=== PATIENT | female | born 2000 | race Caucasian/White ===

== ENCOUNTER 2021-08-10 15:41 | Emergency (ER) | payer BC ==
[~2021-08-10] VITALS: Wt 73.9 kg
[2021-08-10] MEDS ORDERED: XULANE1 TDM TD (15:50)
[2021-08-10 16:16] LABS: BASO # 0.05 K/mm3 (0.02-0.10); EOS # 0.42 K/mm3 (0.04-0.40); EOS % 3.6 % (1.0-5.0); HEMOGLOBIN 13.4 g/dL (12.5-16.0); LYMPH# 2.41 K/mm3 (1.50-4.00); MEAN CELL VOLUME 80 fl (78-100); MEAN CORPUSCULAR HEMOGLOBIN 25 pg (27-31); MEAN CORPUSCULAR HGB CONC 32 g/dL (33-37); MEAN PLATELET VOLUME 9.9 fl (7.4-10.4); MONO # 0.68 K/mm3 (0.20-0.80); NEU # 7.96 K/mm3 (1.40-6.50); PLATELET COUNT 317 K/mm3 (130-400); RED BLOOD COUNT 5.28 M/mm3 (4.10-5.30); RED CELL DISTRIBUTION WIDTH 13.6 % (11.5-14.5); WHITE BLOOD COUNT 11.5 K/mm3 (4.8-10.8)
[2021-08-10 16:23] LABS: POTASSIUM 4.2 mmol/L (3.5-5.1)
[2021-08-10 16:24] LABS: CALCIUM 9.2 mg/dL (8.3-10.5)
[2021-08-10 16:25] LABS: TOTAL PROTEIN 7.5 g/dL (6.4-8.3)
[2021-08-10 16:26] LABS: URINE APPEARANCE CLEAR; URINE BILIRUBIN NEGATIVE (NEGATIVE); URINE BLOOD TRACE (NEGATIVE); URINE COLOR YELLOW; URINE GLUCOSE NEGATIVE (NEGATIVE); URINE KETONE NEGATIVE (NEGATIVE); URINE LEUKOCYTE ESTERASE TRACE (NEGATIVE); URINE MUCUS PRESENT (NOT PRESENT); URINE NITRATE NEGATIVE (NEGATIVE); URINE PROTEIN(semi-quant) TRACE mg/dL (NEGATIVE); URINE UROBILINOGEN NORMAL (NORMAL); URINE WBC 0-1 /hpf (0-3)
[2021-08-10 16:27] LABS: TOTAL BILIRUBIN 0.3 mg/dL (0.2-1.2)
[2021-08-10 17:33] LABS: CLUE CELLS NOT OBSERVED (Not Observd)
[2021-08-10 18:11] VITALS: BP 129/89
== END 2021-08-10 18:08 | disposition home or self-care (01) ==
LOC: ED 15:41
PROVIDERS: Physician Assistant
DX: R05.9 Cough, unspecified (principal)
CPT/HCPCS: J1885; Q0111; Q9967

== ENCOUNTER → 2021-08-10 | Outpatient (CLI) | payer BC ==
[~2021-08-10] MED LIST: XULANE1 TDM TD
== END ==
LOC: RAD 08:58
DX: R10.32 Left lower quadrant pain (principal)